=== PATIENT | female | born 1960 | race Caucasian/White ===

== ENCOUNTER 2020-11-13 11:59 | Outpatient (REF) | payer MEDICAID, SELFPAY ==
[2020-11-13 13:56] LABS: MANUAL DIFF FLAG NO
[2020-11-13 14:07] LABS: Basophils Percent Auto 0.7 % (0-2); Eosinophils Absolute Auto 0.1 X10*3/uL (0.0-0.4); Eosinophils Percent Auto 1.8 % (0-4); Hematocrit 37.8 % (37-47); Hemoglobin 12.3 g/dl (12.0-16.0); Imm Gran Abs Auto 0.02 X10*3/uL (0.00-0.03); Imm Gran Pct Auto 0.4 % (0.0-0.4); Lymphocytes Absolute Auto 2.2 X10*3/uL (1.2-4.9); Lymphocytes Percent Auto 37.8 % (20-40); Mean Corpuscular HGB Conc 32.5 g/dl (31.0-35.0); Mean Corpuscular Hemoglobin 30.1 pg (27.0-33.0); Mean Corpuscular Volume 92.4 fL (80-98); Mean Platelet Volume 11.3 fL (9.4-12.3); Monocytes Absolute Auto 0.7 X10*3/uL (0.1-1.2); Neutrophils Absolute Auto 2.6 X10*3/uL (2.0-8.3); Neutrophils Percent Auto 46.3 % (45-73); Platelet Count 207 X10*3/uL (160-400); Red Blood Count 4.09 X10*6/uL (4.20-5.50); Red Cell Distribution Width 12.8 % (11.0-16.0); White Blood Count 5.7 X10*3/uL (4.8-10.8)
[2020-11-13 14:50] LABS: Alanine Aminotransferase 80 U/L (0-31); Albumin Level 4.3 g/dL (3.5-5.0); Alkaline Phosphatase 122 U/L (39-117); Anion Gap 16 (12-20); Aspartate Amino Transferase 57 U/L (5-31); Bilirubin Total 0.4 mg/dL (0.0-1.0); Blood Urea Nitrogen 13 mg/dL (9-16); Calcium 10.1 mg/dL (8.4-10.2); Carbon Dioxide 28 mmol/L (22-29); Chloride 99 mmol/L (96-108); Estimated Glomerular Filt Rate > 60; Glucose Random 84 mg/dL (60-115); Potassium 4.7 mmol/L (3.3-5.1); Sodium 138 mmol/L (135-145); Total Protein 7.3 g/dL (6.5-8.0)
[2020-11-13 15:16] LABS: Valproate 67.7 mcg/mL (50.0-100.0)
[2020-11-16 13:21] LABS: TS Negative Control Passed; TS Panel A 5; TS Panel B 6; TS Positive Control Passed; TSpotTB BORDERLINE (SeeBelow)
== END 2020-11-13 12:00 | disposition home or self-care (01) ==
LOC: HO.10HDL 11:59
PROVIDERS: Visit Provider Internal Medicine
DX: E87.1 Hypo-osmolality and hyponatremia (principal); G40.909 Epilepsy, unspecified, not intractable, without status epilepticus; R60.9 Edema, unspecified; Z87.820 Personal history of traumatic brain injury
CPT/HCPCS: 36415; 80053; 80164; 85025; 86481

== ENCOUNTER 2021-01-01 14:34 | Outpatient (REF) | payer MEDICAID, SELFPAY ==
--- NOTE | ~2021-01-01 | MM_ITS ---
EXAMINATION: MM SCREENING DIGITAL BREAST TOMOSYNTHESIS, BILATERAL CLINICAL INFORMATION: Screening. Asymptomatic. The lifetime risk of breast cancer based on the Tyrer-Cuzick Model is 7%. COMPARISON: Mammography: 09/27/2019, 08/12/2018, 06/24/2017, 06/17/2016 TECHNIQUE: Digital breast tomosynthesis is performed in both the craniocaudal and mediolateral oblique views along with computer-aided detection (CAD). Synthesized 2D images are generated from the tomosynthesis. Technologist notes technically challenging exam, tailored to patient capabilities. FINDINGS: There are scattered areas of fibroglandular density (ACR BI-RADS breast composition Category b). Parenchymal pattern is similar to prior studies. There are scattered parenchymal asymmetries again seen with some year to year variation from shifting fibroglandular tissue with positioning. There is stable nodularity central and outer left breast. The skin contours are smooth. MM/MM tomosynthesis screening BI IMPRESSION: No significant changes from prior studies. ASSESSMENT: BI-RADS 2: Benign RECOMMENDATION: Routine annual mammography screening. This patient's information was entered into a reminder system with a target due date for their next mammogram.
== END 2021-01-01 14:35 | disposition home or self-care (01) ==
LOC: HO.MAMMO 14:34
PROVIDERS: PCP Internal Medicine; Visit Provider Internal Medicine
DX: Z12.31 Encounter for screening mammogram for malignant neoplasm of breast (principal)
CPT/HCPCS: 77063; 77067

== ENCOUNTER 2021-04-11 15:52 | Outpatient (REF) | payer MEDICAID, SELFPAY ==
[2021-04-11 18:12] LABS: Glucose Urine UA NEG (NEG); Leukocyte Esterase Urine NEG (NEG); Nitrite Urine NEG (NEG); Specific Gravity - Urine <= 1.005 (1.005-1.025); Urine Blood NEG (NEG); Urine Ketones NEG (NEG); Urine Protein NEG (NEG-TRACE)
[2021-04-11 18:15] LABS: Appearance Urine CLEAR; Color Urine COLORLESS
== END 2021-04-11 15:53 | disposition home or self-care (01) ==
LOC: HO.LAB 15:52
PROVIDERS: PCP Internal Medicine; Visit Provider Internal Medicine
DX: R30.0 Dysuria (principal)
CPT/HCPCS: 81003; 87086

== ENCOUNTER 2021-11-05 15:59 | Outpatient (REF) | payer MEDICAID, SELFPAY ==
--- NOTE | ~2021-11-05 | XR_ITS ---
EXAMINATION: XR KNEE, RIGHT CLINICAL INFORMATION: Right knee pain. COMPARISON: None TECHNIQUE: Four views of the right knee. FINDINGS: There is mild reduction in tricompartment joint space without bony erosive changes or loose bodies. There is mild superior patellar enthesophytes. No abnormal joint effusion or loose body seen. XR/XR knee RT 4V IMPRESSION: Mild superior patellar spurring. No visible acute fracture, dislocation or subluxation seen. Mild degenerative changes without joint effusion.
== END 2021-11-05 16:00 | disposition home or self-care (01) ==
LOC: HO.XRAY 15:59
PROVIDERS: PCP Internal Medicine; Visit Provider Internal Medicine
DX: M25.561 Pain in right knee (principal)
CPT/HCPCS: 73564

== ENCOUNTER 2022-01-02 15:50 | Outpatient (REF) | payer MEDICAID, SELFPAY ==
--- NOTE | ~2022-01-02 | MM_ITS ---
EXAMINATION: MM SCREENING DIGITAL BREAST TOMOSYNTHESIS, BILATERAL CLINICAL INFORMATION: Screening. Asymptomatic. The lifetime risk of breast cancer based on the Tyrer-Cuzick Model is 7.3%. COMPARISON: Mammography: January 01, 2021 and studies dating back to December 16, 2011 TECHNIQUE: Digital breast tomosynthesis is performed in both the craniocaudal and mediolateral oblique views along with computer-aided detection (CAD). Synthesized 2D images are generated from the tomosynthesis. FINDINGS: There are scattered areas of fibroglandular density (ACR BI-RADS breast composition Category b). There are no significant masses, abnormal calcifications, or other abnormalities. MM/MM tomosynthesis screening BI IMPRESSION: There are no significant changes from prior study. ASSESSMENT: BI-RADS 1: Negative RECOMMENDATION: Routine annual mammography screening. This patient's information was entered into a reminder system with a target due date for their next mammogram.
== END 2022-01-02 15:51 | disposition home or self-care (01) ==
LOC: HO.MAMMO 15:50
PROVIDERS: Visit Provider Internal Medicine
DX: Z12.31 Encounter for screening mammogram for malignant neoplasm of breast (principal)
CPT/HCPCS: 77063; 77067

== ENCOUNTER 2022-11-24 14:03 | Outpatient (REF) | payer MEDICAID, SELFPAY ==
[2022-11-24 14:18] LABS: MANUAL DIFF FLAG NO
[2022-11-24 14:49] LABS: Basophils Absolute Auto 0.1 X10*3/uL (0.0-0.2); Basophils Percent Auto 0.8 % (0-2); Eosinophils Absolute Auto 0.1 X10*3/uL (0.0-0.4); Eosinophils Percent Auto 1.7 % (0-4); Hematocrit 33.8 % (37.0-47.0); Hemoglobin 11.2 g/dl (12.0-16.0); Imm Gran Abs Auto 0.01 X10*3/uL (0.00-0.03); Imm Gran Pct Auto 0.2 % (0.0-0.4); Lymphocytes Absolute Auto 2.3 X10*3/uL (1.2-4.9); Lymphocytes Percent Auto 38.4 % (20-40); Mean Corpuscular HGB Conc 33.1 g/dl (31.0-35.0); Mean Corpuscular Hemoglobin 29.6 pg (27.0-33.0); Mean Corpuscular Volume 89.4 fL (80.0-98.0); Monocytes Absolute Auto 0.8 X10*3/uL (0.1-1.2); Monocytes Percent Auto 13.2 % (2-11); Neutrophils Absolute Auto 2.7 x10*3/uL (2.0-8.3); Neutrophils Percent Auto 45.7 % (45-73); Platelet Count 217 X10*3/uL (160-400); Red Blood Count 3.78 X10*6/uL (4.20-5.50); Red Cell Distribution Width 12.2 % (11.0-16.0)
[2022-11-24 15:46] LABS: Alanine Aminotransferase 19 U/L (0-31); Albumin Level 3.9 g/dL (3.5-5.0); Alkaline Phosphatase 74 U/L (39-117); Anion Gap 14 (12-20); Aspartate Amino Transferase 25 U/L (5-31); Bilirubin Total 0.3 mg/dL (0.0-1.0); Blood Urea Nitrogen 14 mg/dL (9-16); Calcium 9.4 mg/dL (8.4-10.2); Carbon Dioxide 24 mmol/L (22-29); Chloride 102 mmol/L (96-108); Estimated Glomerular Filt Rate > 60; Glucose Random 106 mg/dL (60-115); Potassium 4.9 mmol/L (3.3-5.1); Sodium 135 mmol/L (135-145); Total Protein 6.8 g/dL (6.5-8.0)
[2022-11-27 00:48] LABS: TS Negative Control Passed; TS Panel A 0; TS Panel B 0; TS Positive Control Passed; TSpotTB Negative (Negative)
== END 2022-11-24 14:04 | disposition home or self-care (01) ==
LOC: HO.LAB 14:03
PROVIDERS: PCP Internal Medicine; Visit Provider Internal Medicine
DX: G40.909 Epilepsy, unspecified, not intractable, without status epilepticus (principal); Z87.820 Personal history of traumatic brain injury
CPT/HCPCS: 36415; 80053; 85025; 86481

== ENCOUNTER 2023-03-09 13:50 | Outpatient (REF) | payer MEDICAID, SELFPAY ==
[2023-03-09 15:31] LABS: Appearance Urine Clear; Color Urine Dark Yellow; Glucose Urine UA Negative (Negative); Leukocyte Esterase Urine Moderate (2+) (Negative); Nitrite Urine Negative (Negative); PH 6.5 (5.0-9.0); UMIC TRIGGER UA YES; Urine Blood Negative (Negative); Urine Ketones Trace mg/dL (Negative); Urine Protein Negative (Neg-Trace)
[2023-03-09 15:34] LABS: Bacteria Urine None Seen (None Seen); Hyaline Casts Urine 0-2 /LPF (0-2); RBC Urine 0-2 /HPF (0-2); Squamous Epithelial Cell Urine 0-2 /HPF (0-2); WBC Urine 21-50 /HPF (0-5)
== END 2023-03-09 13:51 | disposition home or self-care (01) ==
LOC: HO.LAB 13:50
PROVIDERS: PCP Internal Medicine; Visit Provider Internal Medicine
DX: R30.0 Dysuria (principal)
CPT/HCPCS: 81001; 87086

== ENCOUNTER 2023-09-21 11:53 | Outpatient (REF) | payer MEDICAID, SELFPAY ==
--- NOTE | ~2023-09-21 | XR_ITS ---
EXAMINATION: XR SHOULDER, RIGHT CLINICAL INFORMATION: Right shoulder pain. COMPARISON: None available. TECHNIQUE: 3 views of the right shoulder. FINDINGS: The bones are diffusely demineralized. Advanced degenerative changes in the partially imaged upper thoracic spine with leftward curvature. Very limited images of the right mid to upper lung demonstrate possible diffuse lung parenchymal disease which should be evaluated with dedicated views of the chest. Deformity with hypertrophic change at the opa-kj-yszrjc aspect of the right clavicle characteristic of prior clavicular fracture with relative inferior displacement of the lateral fracture fragment. Correlation with clinical history and exam recommended to determine further management and chronicity of these findings. XR/XR shoulder RT min 2V IMPRESSION: 1. Prior right fracture dislocation of the right mid clavicle with evidence suggesting some callus formation/healing. Correlation with clinical history and exam recommended to determine further management and chronicity of these findings. 2. Very limited images of the right hkj-wz-ozsdh lung demonstrate possible diffuse lung parenchymal disease which should be evaluated with dedicated PA and lateral views of the chest. This study was presented today September 22, 2023 at 12:15 PM for interpretation. PSA staff will provide results to referring provider at this time.
== END 2023-09-21 11:54 | disposition home or self-care (01) ==
LOC: HO.XRAY 11:53
PROVIDERS: PCP Internal Medicine; Visit Provider Internal Medicine
DX: M25.511 Pain in right shoulder (principal); Z91.81 History of falling
CPT/HCPCS: 73030

== ENCOUNTER 2023-10-05 09:42 | Outpatient (REF) | payer MEDICAID, SELFPAY ==
--- NOTE | ~2023-10-05 | XR_ITS ---
EXAMINATION: XR CLAVICLE, RIGHT CLINICAL INFORMATION: Fracture of unspecified part of unspecified clavicle COMPARISON: Right shoulder 09/21/2023 TECHNIQUE: PA and tangential views of the right clavicle. FINDINGS: There is no significant change in position or alignment of the fracture of the mid to distal right clavicle with relative inferior displacement of the lateral fracture fragment. There is suggestion of some callus formation consistent with healing. The acromioclavicular joint appears normal. XR/XR clavicle RT IMPRESSION: Healing or healed fracture of the mid to distal right clavicle.
== END 2023-10-05 09:43 | disposition home or self-care (01) ==
LOC: HO.HOSX 09:42
PROVIDERS: Visit Provider Physician Assistant
DX: S42.021A Displaced fracture of shaft of right clavicle, initial encounter for closed fracture (principal)
CPT/HCPCS: 73000; 99212

== ENCOUNTER 2023-10-05 12:53 | Outpatient (AMB) | payer MEDICAID, SELFPAY ==
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
== END 2023-10-05 13:38 | disposition home or self-care (01) ==
PROVIDERS: PCP Internal Medicine; Visit Provider Physician Assistant
DX: S42.021A Displaced fracture of shaft of right clavicle, initial encounter for closed fracture (principal)
CPT/HCPCS: 99203

== ENCOUNTER 2023-12-21 12:08 | Outpatient (REF) | payer MEDICAID, SELFPAY ==
[2023-12-21 13:21] LABS: MANUAL DIFF FLAG NO
[2023-12-21 13:27] LABS: Basophils Percent Auto 0.7 % (0-2); Eosinophils Absolute Auto 0.1 X10*3/uL (0.0-0.4); Eosinophils Percent Auto 2.1 % (0-4); Hematocrit 33.9 % (37.0-47.0); Hemoglobin 11.3 g/dl (12.0-16.0); Imm Gran Abs Auto 0.01 X10*3/uL (0.00-0.03); Imm Gran Pct Auto 0.2 % (0.0-0.4); Lymphocytes Absolute Auto 2.3 X10*3/uL (1.2-4.9); Lymphocytes Percent Auto 40.3 % (20-40); Mean Corpuscular HGB Conc 33.3 g/dl (31.0-35.0); Mean Corpuscular Hemoglobin 30.4 pg (27.0-33.0); Mean Corpuscular Volume 91.1 fL (80.0-98.0); Mean Platelet Volume 10.3 fL (9.4-12.3); Monocytes Absolute Auto 0.7 X10*3/uL (0.1-1.2); Monocytes Percent Auto 12.7 % (2-11); Neutrophils Absolute Auto 2.5 x10*3/uL (2.0-8.3); Platelet Count 203 X10*3/uL (160-400); Red Blood Count 3.72 X10*6/uL (4.20-5.50); Red Cell Distribution Width 12.6 % (11.0-16.0); White Blood Count 5.7 X10*3/uL (4.8-10.8)
[2023-12-21 14:05] LABS: Valproate 65.6 mcg/mL (50.0-100.0)
[2023-12-21 14:07] LABS: Alanine Aminotransferase 19 U/L (0-31); Albumin Level 3.9 g/dL (3.5-5.0); Anion Gap 12 (12-20); Aspartate Amino Transferase 24 U/L (5-31); Bilirubin Total 0.2 mg/dL (0.0-1.0); Blood Urea Nitrogen 13 mg/dL (9-16); Calcium 9.3 mg/dL (8.4-10.2); Carbon Dioxide 27 mmol/L (22-29); Chloride 99 mmol/L (96-108); Estimated Glomerular Filt Rate > 60; Glucose Random 78 mg/dL (60-115); Potassium 4.6 mmol/L (3.3-5.1); Sodium 133 mmol/L (135-145); Total Protein 7.2 g/dL (6.5-8.0); Vitamin D 25-OH Total 57.7 ng/mL (>30)
[2023-12-21 14:17] LABS: Alkaline Phosphatase 73 U/L (39-117)
== END 2023-12-21 12:09 | disposition home or self-care (01) ==
LOC: HO.10HDL 12:08
PROVIDERS: Visit Provider Internal Medicine
DX: E78.00 Pure hypercholesterolemia, unspecified (principal); G40.909 Epilepsy, unspecified, not intractable, without status epilepticus; Z79.899 Other long term (current) drug therapy
CPT/HCPCS: 36415; 80053; 80164; 82306; 85025

== ENCOUNTER 2024-01-04 14:58 | Outpatient (AMB) | payer MEDICAID, SELFPAY ==
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
[2024-01-04 15:08] VITALS: BP 137/60; PULSE 72; BMI 32.7
== END 2024-01-04 16:04 | disposition home or self-care (01) ==
PROVIDERS: PCP Internal Medicine; Visit Provider Nurse Practitioner Family
DX: Z12.11 Encounter for screening for malignant neoplasm of colon (principal); Z01.818 Encounter for other preprocedural examination
CPT/HCPCS: 99203

== ENCOUNTER → 2024-01-04 14:58 | Outpatient (BNVA) | payer MEDICAID, SELFPAY | PROVIDERS: PCP Internal Medicine; Visit Provider Nurse Practitioner Family | DX: Z12.11 Encounter for screening for malignant neoplasm of colon (principal) | CPT/HCPCS: 99212 ==

== ENCOUNTER 2024-03-07 12:24 | Outpatient (REF) | payer MEDICAID, SELFPAY ==
--- NOTE | ~2024-03-07 | XR_ITS ---
EXAMINATION: XR FOOT, RIGHT CLINICAL INFORMATION: Right foot pain. COMPARISON: None available. TECHNIQUE: AP, lateral, and both oblique views of the right foot. FINDINGS: Bones are osteopenic. Mild multifocal osteoarthritis is present in the MTP joints and tarsometatarsal joints with joint space narrowing and marginal osteophytes. Rumj-qs-iooxcjpq multifocal osteoarthritis is present in the interphalangeal joints. Ankylosis is suspected at the PIP joints of the third and fourth toes. The distal phalanx of the fourth toe appears absent. There is ankylosis at the DIP joint of the second toe. There is moderate osteoarthritis at the talocrural joint with osseous fragments, potentially the result of an old injury. There is ossification in the region of the mid substance of the Achilles tendon, potentially due to an old avulsion injury or ossification in the region of partial tearing/tendinosis. XR/XR foot RT min 3V IMPRESSION: 1. 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 2. 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 3. Ossification in the region of the mid substance of the Achilles tendon, potentially due to an old avulsion injury or ossification in the region of partial tearing/tendinosis.
== END 2024-03-07 12:25 | disposition home or self-care (01) ==
LOC: HO.XRAY 12:24
PROVIDERS: PCP Internal Medicine; Visit Provider Internal Medicine
DX: M79.671 Pain in right foot (principal)
CPT/HCPCS: 73630

== ENCOUNTER 2024-03-16 15:56 | Outpatient (REF) | payer MEDICAID, SELFPAY | END 2024-03-16 15:57 | disposition home or self-care (01) | LOC: HO.LNP 15:56 | PROVIDERS: Visit Provider Internal Medicine | DX: L03.031 Cellulitis of right toe (principal) | CPT/HCPCS: 87070; 87077; 87186; 87205 ==

== ENCOUNTER 2024-06-27 09:31 | Day surgery (SDC) | payer MEDICAID, SELFPAY ==
[2024-06-23 13:46] VITALS: BMI 32.7
--- NOTE | 2024-06-27 08:59 | HO.ANESPROP2 ---
[facility] Active Problems Active Problems: All Active Problems Right clavicle fracture (Acute) Past Medical History Medical History (Updated 06/23/24 @ 13:52 by Becki Alfred RN) Elevated cholesterol PTSD (post-traumatic stress disorder) Spastic hemiplegia affecting right dominant side Seizures TBI (traumatic brain injury) Family History Family history of problems with anesthesia: No Surgical History Surgical History (Updated 06/23/24 @ 13:42 by Becki Alfred RN) History of carpal tunnel release H/O colonoscopy History of Problems with Anesthesia: No Social History Social History Patient Tobacco Use Status: Never used Tobacco Use of substances other than those prescribed or required for medical reasons: No Have you been hit, kicked, punched, or otherwise hurt by someone within the past year? If so, by whom?: No Are you DNR?: No Advance Directives: No Advance Directives Information Provided: Yes Recently lost weight without trying: No Current occupation: right hand dominant Meds Allergies Allergy/AdvReac Type Severity Reaction Status Date / Time Penicillins [PENICILLINS] Allergy Intermediate RASH Verified 01/04/24 15:11 Home Medications ?Medication ?Instructions ?Recorded ?Confirmed ?Last Taken ?Type bupropion HCl 150 mg 24 hr tablet, 150 mg PO QAM 10/05/23 06/23/24 Unknown History extended release calcium carbonate 600 mg-vitamin 1 tab PO DAILY 10/05/23 06/23/24 Unknown History D3 10 mcg (400 unit) tablet divalproex 250 mg tablet,extended 250 mg PO BEDTIME 10/05/23 06/23/24 Unknown History release 24 hr divalproex 500 mg tablet,extended 500 mg PO BEDTIME 10/05/23 06/23/24 Unknown History release 24 hr fluoxetine 40 mg capsule 40 mg PO DAILY 10/05/23 06/23/24 Unknown History quetiapine 50 mg tablet 50 mg PO BID 10/05/23 06/23/24 Unknown History ibuprofen 200 mg tablet 400 mg PO Q8H 01/04/24 06/23/24 Unknown History bhmzciyqlwux-Hb-mcpb-minerals 1 tab PO DAILY 01/04/24 06/23/24 Unknown History Exam Height,Weight and Vital Signs: Height 5 ft 1 in Weight 78.471 kg Airway Mallampati Class: II (upper) TM Dist: >3cm Neck ROM: Full Heart: rrr Lungs: cta Assessment and Plan Assessment Anesthesia Assessment: Anesthesia Plan Discussed and Chart Reviewed Final Anesthetic Review Family History of Problems with Anesthesia: No History of Problems with Anesthesia: No NPO: Yes ASA Class: III Final Preanesthetic Review: No Changes in Pt Med Stat, Meds/Allgs Chart Reviewed and Consent Obtained/Reviewed Patient Risk: Low Procedure Risk: Low Anesthetic Plan Anesthetic Plan: MAC: Disposition: Standard PACU
[2024-06-27 10:05] VITALS: BP 135/59; PULSE 85; RESP 16; TEMP 36.7; O2SAT 96; BMI 30.7
--- NOTE | 2024-06-27 10:16 | PC.NURSE ---
patient is not AOx3 AUTOMOTIVE ARTIST at bedside whom patient lives with 16/03. there is no HCP form or NOK. father estee to be called his wifes number is [phone]
--- NOTE | 2024-06-27 10:22 | PC.NURSE ---
unable to contact pt father at this time. phone is not connected.
--- NOTE | 2024-06-27 10:24 | MHC.SHP ---
Pre-Procedural Eval Section A - 24 Hr Update-Section A only Date of Service: 06/27/24 The patient is an INPATIENT: No The patient has been examined within 24 hours of the surgical procedure. The History & Physical has been completed within 30 days and I have reviewed it.: No Section B - Complete if H&P > 30 days Chief Complaint: Colon cancer screening Relevant Family History (Specify if Yes): No Relevant Social History: None Present Medications: see Short Stay Collaborative assessment Medical History: Significant History (TBI (traumatic brain injury)) History of Previous Operations: Relevant previous surgery/procedure and date(s) (History of colonoscopy) Allergies: Allergies Allergy/AdvReac Type Severity Reaction Status Date / Time Penicillins [PENICILLINS] Allergy Intermediate RASH Verified 01/04/24 15:11 Review of Systems Sugical H&P ROS: Negative: Cardiovascular, Respiratory and Gastrointestinal and Yes, Specify: Constitution (TBI) Exam Surgical H&P Exam: Normal: Heart, Normal: Lungs, Normal: Extremities and Normal: Abdomen Plan Diagnosis/Plan: Unchanged I have reviewed the history and physical and performed a pertinent physical examination on my patient. No changes have occurred unless specified. Time Spent With Patient Time: Total time managing care of this patient today ____ minutes.
--- NOTE | 2024-06-27 10:45 | PC.NURSE ---
non emergency services ambulance driver attempted to call father of pt and no answer
[2024-06-27] MEDS: Lactated Ringers 1,000 ML 80 ML IVCONT (11:28)
--- NOTE | 2024-06-27 11:30 | PC.NURSE ---
verbal consent with father estee signed with anesthesia and md for procedure.
--- NOTE | 2024-06-27 11:44 | HO.OPN-COLON ---
Colonoscopy Operative Note Operative Note Date of Service: 06/27/24 Narrative: FLEXIBLE SIGMOIDOSCOPY TILL 25 CMS Pre-op diagnosis: Surveillance for colon polyps. Post-op diagnosis:? Procedure was aborted due to poor prep Endoscopist:? Uyen Marquez MD Anesthesia:?MAC Consent: Indications for the procedure and potential complications of bleeding, perforation, reaction to medications and missed diagnosis were discussed with the patient's dad, Mike Sanders and informed verbal consent was obtained. Instrument: Olympus CF H 190 L variable stiffness adult colonoscope Monitoring: Vital signs and clinical assessment, intermittent blood pressure monitoring, continuous EKG monitoring, Pulse oximetry and Carbon Dioxide monitoring were done throughout the procedure. Please see anesthesia flowsheet. Procedure: The patient was placed in the left lateral decubitis position and pre-procedure medications were administered. After a digital rectal examination of the ano-rectum, the video colonoscope was inserted into the rectum and advanced through the colon to the sigmoid colon at 25 cms. The colonoscope could not be advanced further due to solid and semicold stool blocking the lumen. The colonoscope was removed and the procedure was aborted Findings: Sigmoid Colon: Not evaluated due to poor prep Rectum: Not evaluated due to poor prep Ano-rectum: Rectal exam was normal Colon preparation: Poor - procedure was aborted. [place] Bowel Preparation Scale Left colon; 0 (0 = Unprepared colon segment with mucosa not seen due to solid stool that cannot be cleared. 1 = Portion of mucosa of the colon segment seen, but other areas of the colon segment not well seen due to staining, residual stool and/or opaque liquid. 2 = Minor amount of residual staining, small fragments of stool and/or opaque liquid, but mucosa of colon segment seen well. 3 = Entire mucosa of colon segment seen well with no residual staining, small fragments of stool or opaque liquid) Impression and Post Procedure Diagnosis: Sigmoidoscopy Findings: Procedure was aborted due to poor prep Plan: Colonoscopy appointment will be rescheduled with 2 day prep Above findings were reviewed with the patient and her SWING TYPE LATHE OPERATOR.
[2024-06-27 11:51] VITALS: BP 144/73; PULSE 87; RESP 12; TEMP 36.6; O2SAT 98
[2024-06-27 12:06] VITALS: BP 141/69; PULSE 84; RESP 16; TEMP 36.6; O2SAT 98
== END 2024-06-27 12:42 | disposition home or self-care (01) ==
PROVIDERS: PCP Internal Medicine; Visit Provider Internal Medicine Gastroenterology
PROC: 0DJD8ZZ Inspection of Lower Intestinal Tract, Via Natural or Artificial Opening Endoscopic (ICD-10-PCS; CPT 45378; principal; 2024-06-27 11:20)
DX: Z12.11 Encounter for screening for malignant neoplasm of colon (principal); Z53.8 Procedure and treatment not carried out for other reasons; E78.5 Hyperlipidemia, unspecified; R56.9 Unspecified convulsions; Z87.820 Personal history of traumatic brain injury; Z79.899 Other long term (current) drug therapy
CPT/HCPCS: 45330; J2003; J2704

== ENCOUNTER → 2024-06-27 09:31 | Outpatient (BNV) | payer MEDICAID, SELFPAY | PROVIDERS: PCP Internal Medicine; Visit Provider Internal Medicine Gastroenterology | DX: Z12.11 Encounter for screening for malignant neoplasm of colon (principal); Z86.0100 Personal history of colon polyps, unspecified; Z91.199 Patient's noncompliance with other medical treatment and regimen due to unspecified reason | CPT/HCPCS: 45378 ==

== ENCOUNTER 2024-09-20 09:01 | Outpatient (REF) | payer MEDICAID, SELFPAY ==
--- OUTSIDE RECORDS SUMMARY | 2024-09-20 09:25 | XMS_ITS | Clinical Summary ---
Author Organization [facility] Address [address] [place] [address] Care Team Providers Care Metal Molder Name Role Phone Unavailable Primary Care Provider Unavailabl e Source Comments PLEASE NOTE, if this patient is a minor, it may be UNLAWFUL to discuss sensitive information that is contained in these records (such as FAMILY PLANNING, MENTAL HEALTH or SUBSTANCE ABUSE) with the minor patient's parent or other person without the patient's specific authorization.[facility] Immunizations Name Administration Dates Next Due Moderna COVID-19 Vaccine, re d cap blue label, 12+ Primary Series 01/08/2021,12/11/2020 Social History Tobacco Use Types Packs/Day Years Used Date Smoking Tobacco: Never Assessed Social Connections Answer Date Recorded Social Connections and Isolation 0 01/22/2024 Financial Resource Strain Answer Date R ecorded Financial Resource Strain 0 2023 Stress Answer Date Recorded Stress 0 01/22/2024 Physical Activity Answer Date Recorded Physical Activity 0 01/22/2024 Food Insecurity Answer Date Recorded Food 0 01/22/2024 Transportation Needs Answer Date Record ed Transportation 0 01/22/2024 Housing Stability Answer Date Recorded Housing 0 01/22/2024 Safety and Environment Answer Date Ananth rded Safety 0 01/22/2024 Utilities Answer Date Recorded Utilities 0 01/22/2024 Employment Answer Date Recorded Employment 0 01/22/2024 Comments Unknown Sex and Gender Information Value Date Recorded Sex Assigned at Not on file Legal Sex Female 6:16 AM PDT Gender Identity Not on file Sexual Orientation Not on file Plan of Treatment Health Maintenance Due Date Last Done Comments Diabetes Screening 1960 HPV Screening 1960 Hepatitis C Screening 1960 Lipid Screening 1960 Pap + HPV 1960 Tobacco Screening 1960 HIV Screening 11/30/1975 Annual Preventive Care Visit 1978 Hypertension Screening (#1) 1978 Imm-DTaP/Tdap/Td (1 - Tdap) 11/30/1979 Cervical Cancer Screening 1981 Pap Smear 1981 Breast Cancer Screening (Mammogram) 2000 CT Colonography 2005 Colonoscopy 2005 Colorectal Cancer Screening 2005 FIT/gFOBT 2005 Fecal DNA 2005 Flexible Sigmoidoscopy 2005 Imm-Zoster, Recombinant (1 of 2) 2010 Alcohol and Drug Screen 08/24/2023 Depression Annual Screen 08/24/2023 [id number] ( season) 2024 021, 12/11/2020 Imm-Influenza (#1) 2024 Cervical Ablation/Cold-Knife Conization Discontinued Cervical Cryotherapy Discontinued Colposcopy Discontinued Endometrial Biopsy Discontinued Excision/Leep Discontinued HPV Genotyping Discontinued Vaginal Pap Discontinued Vulvoscopy Discontinued Insurance [place] MEDICAID
--- OUTSIDE RECORDS SUMMARY | 2024-09-20 09:26 | XMS_ITS | Clinical Summary ---
Author Organization [facility] Address [address] [place] [address] Care Team Providers Care Senior Financial Analyst Name Role Phone Unavailable Primary Care Provider Unavailabl e Social History Tobacco Use Types Packs/Day Years Used Date Smoking Tobacco: Never Assessed Sex and Gender Information Value Date Recorded Sex Assigned at Not on file Gender Identity Not on file Sexual Orientation Not on file Plan of Treatment Health Maintenance Due Date Last Done Comments Breast Cancer Screening 1960 DTaP,Tdap,and Td Vaccines (1 - Tdap) 11/30/1979 Cervical Cancer Screening: P ap Smear 1981 Zoster Vaccines (1 of 2) 2010 Colorectal Cancer Screening: Colonoscopy 07/26/2022 Depression Screening 07/26/2022 HIV Screening 07/26/2022 Hepatitis C Screening 07/26/2022 Social Influencers of Health Screening 07/26/2022 COVID-19 Vaccine ( - 2023-2 5 season) 2024 Influenza Vaccine (#1) 2024 RSV Immunization Patients 60 + Years Old (1 - 1-dose 75+ series) 11/30/2035 HIB Vaccines Aged Out No longer eligi ble based on patient's age to complete this topic HPV Vaccines Aged Out No longer eligi ble based on patient's age to complete this topic Hepatitis A Vaccines Aged Out No long er eligible based on patient's age to complete this topic Hepatitis B Vaccines Aged Out No long er eligible based on patient's age to complete this topic IPV Vaccines Aged Out No longer eligi ble based on patient's age to complete this topic MMR Vaccines Aged Out No longer eligi ble based on patient's age to complete this topic Meningococcal ACWY Vaccine Aged Out N o longer eligible based on patient's age to complete this topic Pneumococcal Vaccine: Pediat rics (0 to 5 Years) and At-Risk Patients (6 to 64 Years) Aged Out No longer eligible b ased on patient's age to complete this topic RSV Immunization Patients Un amada 20 months Aged Out No longer eligible b ased on patient's age to complete this topic Varicella Vaccines Aged Out No longer eligible based on patient's age to complete this topic Advance Directives Documents on File Type Date Recorded 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
== END 2024-09-20 09:02 | disposition home or self-care (01) ==
LOC: HO.SH 09:01
PROVIDERS: Visit Provider Internal Medicine
DX: Z01.118 Encounter for examination of ears and hearing with other abnormal findings (principal); H90.3 Sensorineural hearing loss, bilateral
CPT/HCPCS: 92557; 92567

== ENCOUNTER 2025-02-02 11:33 | Outpatient (AMB) | payer OTHER, SELFPAY ==
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
[2025-02-02 11:28] VITALS: BP 130/70; PULSE 72; TEMP 36.5; O2SAT 96; BMI 32.4
--- OUTSIDE RECORDS SUMMARY | 2025-02-02 13:44 | XMS_ITS | Clinical Summary ---
Author Organization [facility] Address [address] [place] [address] Care Team Providers Care Battery Engineer Name Role Phone Unavailable Primary Care Provider Unavailabl e Source Comments PLEASE NOTE, if this patient is a minor, it may be UNLAWFUL to discuss sensitive information that is contained in these records (such as FAMILY PLANNING, MENTAL HEALTH or SUBSTANCE ABUSE) with the minor patient's parent or other person without the patient's specific authorization.[facility] Immunizations Immunization Administration Dates Next Due Moderna COVID-19 Vaccine, [...] Health Maintenance Due Date Last Done Comments Anxiety Screening 1960 Diabetes Screening 1960 HPV Screening 1960 Hepatitis C Screening 1960 Lipid Screening 1960 Pap + HPV 1960 Tobacco Screening 1960 HIV Screening 11/30/1975 Hypertension Screening (#1) 1978 Imm-DTaP/Tdap/Td (1 - Tdap) 11/30/1979 Cervical Cancer Screening 1981 Pap Smear 1981 Breast Cancer Screening (Mammogram) 2000 CT Colonography 2005 Colonoscopy 2005 Colorectal Cancer Screening 2005 FIT/gFOBT 2005 Fecal DNA 2005 Flexible Sigmoidoscopy 2005 Imm-Zoster, Recombinant (1 of 2) 2010 [id number] ( season) 2024 021, 12/11/2020 Imm-Influenza (#1) 2024 Alcohol and Drug Screen 08/24/2024 Depression Annual Screen 08/24/2024 Cervical Ablation/Cold-Knife Conization Discontinued Cervical Cryotherapy Discontinued Colposcopy Discontinued Endometrial Biopsy Discontinued Excision/Leep Discontinued HPV Genotyping Discontinued Vaginal Pap Discontinued Vulvoscopy Discontinued Insurance [place]ID
== END 2025-02-02 12:01 | disposition home or self-care (01) ==
PROVIDERS: PCP Internal Medicine; Visit Provider Internal Medicine
DX: Z00.00 Encounter for general adult medical examination without abnormal findings (principal); G81.11 Spastic hemiplegia affecting right dominant side; S06.9X9A Unspecified intracranial injury with loss of consciousness of unspecified duration, initial encounter; E78.00 Pure hypercholesterolemia, unspecified; D64.9 Anemia, unspecified

== ENCOUNTER 2025-02-02 12:06 | Outpatient (REF) | payer OTHER, SELFPAY ==
[2025-02-02 13:29] LABS: MANUAL DIFF FLAG NO
[2025-02-02 13:31] LABS: Basophils Absolute Auto 0.1 X10*3/uL (0.0-0.2); Eosinophils Absolute Auto 0.2 X10*3/uL (0.0-0.4); Eosinophils Percent Auto 2.9 % (0-4); Hematocrit 33.3 % (37.0-47.0); Hemoglobin 11.2 g/dl (12.0-16.0); Imm Gran Abs Auto 0.01 X10*3/uL (0.00-0.03); Imm Gran Pct Auto 0.2 % (0.0-0.4); Lymphocytes Percent Auto 31.2 % (20-40); Mean Corpuscular HGB Conc 33.6 g/dl (31.0-35.0); Mean Corpuscular Hemoglobin 30.1 pg (27.0-33.0); Mean Corpuscular Volume 89.5 fL (80.0-98.0); Mean Platelet Volume 10.4 fL (9.4-12.3); Monocytes Absolute Auto 0.8 X10*3/uL (0.1-1.2); Monocytes Percent Auto 12.9 % (2-11); Neutrophils Absolute Auto 3.3 x10*3/uL (2.0-8.3); Neutrophils Percent Auto 51.8 % (45-73); Platelet Count 227 X10*3/uL (160-400); Red Blood Count 3.72 X10*6/uL (4.20-5.50); Red Cell Distribution Width 12.1 % (11.0-16.0); White Blood Count 6.3 X10*3/uL (4.8-10.8)
[2025-02-02 13:37] LABS: Estimated Average Glucose 108 mg/dL; Hemoglobin A1c % 5.4 % (<6.0)
[2025-02-02 13:55] LABS: Alanine Aminotransferase 25 U/L (0-31); Alkaline Phosphatase 72 U/L (39-117); Anion Gap 9 (12-20); Aspartate Amino Transferase 32 U/L (5-31); Bilirubin Total 0.3 mg/dL (0.0-1.0); Blood Urea Nitrogen 11 mg/dL (9-16); Calcium 9.2 mg/dL (8.4-10.2); Carbon Dioxide 27 mmol/L (22-29); Chloride 96 mmol/L (96-108); Estimated Glomerular Filt Rate > 60; Glucose Random 82 mg/dL (60-115); Potassium 4.6 mmol/L (3.3-5.1); Sodium 127 mmol/L (135-145); Total Protein 7.1 g/dL (6.5-8.0)
[2025-02-03 07:33] LABS: LDL Cholesterol Direct 73 mg/dL (<100)
== END 2025-02-02 12:07 | disposition home or self-care (01) ==
LOC: HO.10HDL 12:06
PROVIDERS: Visit Provider Internal Medicine
DX: Z00.00 Encounter for general adult medical examination without abnormal findings (principal); G81.11 Spastic hemiplegia affecting right dominant side; S06.9X9S Unspecified intracranial injury with loss of consciousness of unspecified duration, sequela; E78.00 Pure hypercholesterolemia, unspecified; D64.9 Anemia, unspecified
CPT/HCPCS: 36415; 80053; 83036; 83721; 85025; 96127; 99386

== ENCOUNTER 2025-03-16 12:24 | Outpatient (REF) | payer OTHER, SELFPAY ==
--- OUTSIDE RECORDS SUMMARY | 2025-03-16 12:49 | XMS_ITS | Clinical Summary ---
Author Organization [facility] Address [address] [place] [address] Care Team Providers Care Manager Harbor Name Role Phone Unavailable Primary Care Provider [...] 2005 Fecal DNA 2005 Flexible Sigmoidoscopy 2005 Imm-Pneumococcal 50+ (1 of 1 - PCV) 2010 Imm-Zoster, Recombinant (1 of 2) 2010 [id number]-72 ( season) 2024 021, 12/11/2020 Alcohol and Drug Screen 08/24/2024 Depression Annual Screen 08/24/2024 Imm-Influenza (#1) 2025 Cervical Ablation/Cold-Knife Conization Discontinued Cervical Cryotherapy Discontinued Colposcopy Discontinued Endometrial Biopsy Discontinued Excision/Leep Discontinued HPV Genotyping Discontinued Vaginal Pap Discontinued Vulvoscopy Discontinued Insurance [place] MEDICAID
--- OUTSIDE RECORDS SUMMARY | 2025-03-16 12:49 | XMS_ITS | Clinical Summary ---
Author Organization [facility] Address [address] [place] [phone] Phone Care Team Providers Care Wood Router Hand Name Role Phone Ferderick Huggins MD Primary Care Provider [phone] Allergies Active Allergy Reactions Criticality Noted Date Comments Penicillin G Rash 10/15/2024 Medications No known medications Active Problems No known active problems Immunizations Name Administration Dates Next Due Tdap Tetanus diptheria acell ular pertussis (Boostrix; Adacel) 7yo and older 10/15/2024 Medical History Medical History Date Comments Seizures (CMS/HCC V24, CMS/[facility] V28) Anxiety Social History Tobacco Use Types Packs/Day Years Used Date Smoking Tobacco: Never Assessed Comments Unknown Sex and Gender Information Value Date Recorded Sex Assigned at Not on file Legal Sex Female 5:33 PM EST Gender Identity Not on file Sexual Orientation Not on file Obstetrics History Last Filed Vital Signs Vital Sign Reading Time Taken Comments Blood Pressure 126/59 10/15/2024 10:19 AM EST Pulse 79 10/15/2024 10:19 AM EST Temperature 36.6 C (97.9 F) 10/15/2024 8:07 AM EST Respiratory Rate 16 10/15/2024 10:19 AM EST Oxygen Saturation 100% 10/15/2024 10:19 AM EST Inhaled Oxygen Concentration - - Weight 78.5 kg (173 lb) 10/15/2024 8:07 AM EST Height 152.4 cm (5') 10/15/2024 8:07 AM EST Body Mass Index 33.79 10/15/2024 8:07 AM EST Plan of Treatment Health Maintenance Due Date Last Done Comments Breast Cancer Screening 1960 Cervical Cancer Screening: P ap Smear 1981 Pneumococcal Vaccine: 50+ Years (1 of 1 - PCV) 2010 Zoster Vaccines (1 of 2) 2010 Colorectal Cancer Screening: Colonoscopy 07/26/2022 HIV Screening 07/26/2022 Hepatitis C Screening 07/26/2022 Social Influencers of Health Screening 07/26/2022 COVID-19 Vaccine (3 - 2023-2 5 season) 2024 01/08/2021, 12/11/2020 Depression Screening 08/24/2024 Influenza Vaccine (#1) 2025 DTaP,Tdap,and Td Vaccines (2 - Td or Tdap) 10/15/2034 10/15/2024 RSV Immunization Adult Patients (1 - 1-dose 75+ series) 11/30/2035 HIB [...] patient's age to complete this topic Meningococcal B Vaccine Aged Out No l onger eligible based on patient's age to complete this topic RSV Immunization Patients Under 20 months Aged Out No longer eligible b ased on patient's age to complete this topic Varicella Vaccines Aged Out No longer eligible based on patient's age to complete this topic Insurance MEDICAID - [place] Advance Directives Documents on File Type Date Recorded 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
[2025-03-16 13:24] LABS: Anion Gap 12 (12-20); Blood Urea Nitrogen 11 mg/dL (9-16); Calcium 9.2 mg/dL (8.4-10.2); Carbon Dioxide 24 mmol/L (22-29); Chloride 98 mmol/L (96-108); Estimated Glomerular Filt Rate > 60; Potassium 4.6 mmol/L (3.3-5.1); Sodium 129 mmol/L (135-145)
== END 2025-03-16 12:25 | disposition home or self-care (01) ==
LOC: HO.LAB 12:24
PROVIDERS: PCP Internal Medicine; Visit Provider Internal Medicine
DX: E87.1 Hypo-osmolality and hyponatremia (principal)
CPT/HCPCS: 36415; 80048

== ENCOUNTER 2025-05-03 12:04 | Outpatient (AMB) | payer OTHER, SELFPAY ==
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
[2025-05-03 12:00] VITALS: BP 120/68; PULSE 80; RESP 18; TEMP 36.9; O2SAT 99; BMI 34.0
--- OUTSIDE RECORDS SUMMARY | 2025-05-03 15:16 | XMS_ITS | Clinical Summary ---
Author Organization [facility] Address [address] [place] [address] Care Team Providers Care Quality Process Engineer Name Role Phone Unavailable Primary Care [...] 2010 Imm-Zoster, Recombinant (1 of 2) 2010 Alcohol and Drug Screen 08/24/2024 Depression Annual Screen 08/24/2024 Sra-GPDLL-64 (2024- season) 2025 021, 12/11/2020 Imm-Influenza (#1) 2025 Cervical Ablation/Cold-Knife Conization Discontinued Cervical Cryotherapy Discontinued Colposcopy Discontinued Endometrial Biopsy Discontinued Excision/Leep Discontinued HPV Genotyping Discontinued Vaginal Pap Discontinued Vulvoscopy Discontinued Insurance [place] MEDICAID
--- OUTSIDE RECORDS SUMMARY | 2025-05-03 15:16 | XMS_ITS | Clinical Summary ---
Author Organization [facility] Address [address] [place] [phone] Phone Care Team Providers Care Software Packaging Engineer Name Role Phone Frederick Huggins MD Primary Care Provider [phone] Allergies Active Allergy Reactions Criticality Noted Date Comments Penicillin G Rash 10/15/2024 Medications No known medications Active Problems No known active problems Immunizations Name Administration Dates Next Due Tdap Tetanus diptheria acell ular pertussis (Boostrix; Adacel) 7yo and older 10/15/2024 Medical History Medical History Date Comments Seizures (CMS/HCC V24, CMS/[facility] V28) Anxiety Social History Tobacco Use Types [...] 07/26/2022 Social Influencers of Health Screening 07/26/2022 Depression Screening 08/24/2024 COVID-19 Vaccine (3 - 2024-2 6 season) 2025 01/08/2021, 12/11/2020 Influenza Vaccine (#1) 2025 DTaP,Tdap,and Td Vaccines [...] to complete this topic Insurance [place] - [place] Advance Directives Documents on File Type Date Recorded 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
== END 2025-05-03 13:04 | disposition home or self-care (01) ==
LOC: HO.HMCHD 12:04
PROVIDERS: PCP Student in an Organized Health Care Education/Training Program; Visit Provider Student in an Organized Health Care Education/Training Program
DX: S01.01XA Laceration without foreign body of scalp, initial encounter (principal); S06.9X9A Unspecified intracranial injury with loss of consciousness of unspecified duration, initial encounter; E87.1 Hypo-osmolality and hyponatremia

== ENCOUNTER → 2025-05-03 12:04 | Outpatient (BNVA) | payer OTHER, SELFPAY | PROVIDERS: PCP Student in an Organized Health Care Education/Training Program; Visit Provider Student in an Organized Health Care Education/Training Program | DX: S01.01XD Laceration without foreign body of scalp, subsequent encounter (principal); S06.9X9S Unspecified intracranial injury with loss of consciousness of unspecified duration, sequela; E87.1 Hypo-osmolality and hyponatremia; Z79.899 Other long term (current) drug therapy | CPT/HCPCS: 99212 ==

== ENCOUNTER 2025-05-03 12:47 | Emergency (ER) | payer OTHER, SELFPAY ==
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
[2025-05-03 12:56] VITALS: BP 145/67; PULSE 79; RESP 16; TEMP 37.4; O2SAT 99; BMI 33.8
--- NOTE | 2025-05-03 13:01 | PC.NURSE ---
Pressure bandage applied and bleeding has stopped. Provider here to eval and treat.
[2025-05-03 13:54] VITALS: BP 145/67; PULSE 79; RESP 16; TEMP 37.4; O2SAT 99
== END 2025-05-03 13:56 | disposition home or self-care (01) ==
PROVIDERS: Emergency Provider Emergency Medicine Emergency Medical Services
DX: Z48.02 Encounter for removal of sutures (principal)
CPT/HCPCS: 99283

== ENCOUNTER 2025-05-05 14:23 | Outpatient (REF) | payer OTHER, SELFPAY ==
[2025-05-05 16:48] LABS: Osmolality, Serum 277 mosm/kg (281-305)
[2025-05-05 16:49] LABS: Anion Gap 11 (12-20); Blood Urea Nitrogen 13 mg/dL (9-16); Calcium 9.3 mg/dL (8.4-10.2); Carbon Dioxide 26 mmol/L (22-29); Chloride 99 mmol/L (96-108); Estimated Glomerular Filt Rate > 60; Potassium 4.4 mmol/L (3.3-5.1); Sodium 132 mmol/L (135-145)
[2025-05-20 16:14] LABS: Cortisol, Free 0.20 mcg/dL
== END 2025-05-05 14:24 | disposition home or self-care (01) ==
LOC: HO.LAB 14:23
PROVIDERS: PCP Internal Medicine; Visit Provider Nurse Practitioner Family
DX: E87.1 Hypo-osmolality and hyponatremia (principal); Z79.1 Long term (current) use of non-steroidal anti-inflammatories (NSAID); Z79.899 Other long term (current) drug therapy
CPT/HCPCS: 36415; 80048; 82530; 83930; 83935; 84300; 84443; 99202

== ENCOUNTER 2025-05-05 14:23 | Outpatient (AMB) | payer OTHER, SELFPAY ==
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
[2025-05-05 14:45] VITALS: BP 124/70; PULSE 86; O2SAT 98; BMI 32.2
--- OUTSIDE RECORDS SUMMARY | 2025-05-05 17:16 | XMS_ITS | Clinical Summary ---
Author Organization [facility] Address [address] [place] [id number] Phone Care Team Providers Care Salesperson Meats Name Role Phone Frederick Huggins MD Primary Care Provider [phone] Allergies Active Allergy Reactions Criticality Noted Date Comments Penicillin G Rash 10/15/2024 Medications No known medications Active Problems No known active problems Immunizations Name Administration Dates Next Due Tdap Tetanus diptheria acell ular pertussis (Boostrix; Adacel) 7yo and older 10/15/2024 Medical History Medical History Date Comments Seizures (CMS/HCC V24, CMS/[facility] V28) Anxiety Social History Tobacco Use Types [...] to complete this topic Insurance [place] - [place] Advance Directives Documents on File Type Date Recorded Patient Manager Global Communications Expl anation Health Care Decision (hx) 01/26/2020 AD KHALIF DIRECTIVE Care Teams Salesperson Meats Relationship Specialty Start Date End Date Frederick Huggins MD [address] [place] [address] Dr Allen [place] PCP - General Internal Medicine 10/15/24
--- OUTSIDE RECORDS SUMMARY | 2025-05-05 17:16 | XMS_ITS | Clinical Summary ---
Author Organization [facility] Address [address] [place] [address] Care Team Providers Care Career Manager Name Role Phone Unavailable Primary Care Provider [...] Drug Screen 08/24/2024 Depression Annual Screen 08/24/2024 [id number] (2024- season) 2025 021, 12/11/2020 Imm-Influenza (#1) 2025 Cervical Ablation/Cold-Knife Conization Discontinued Cervical Cryotherapy Discontinued Colposcopy Discontinued Endometrial Biopsy Discontinued Excision/Leep Discontinued HPV Genotyping Discontinued Vaginal Pap Discontinued Vulvoscopy Discontinued Insurance [place] MEDICAID
== END 2025-05-05 15:18 | disposition home or self-care (01) ==
PROVIDERS: PCP Internal Medicine; Visit Provider Nurse Practitioner Family
DX: E87.1 Hypo-osmolality and hyponatremia (principal)
CPT/HCPCS: 99204

== ENCOUNTER 2025-05-26 11:12 | Outpatient (AMB) | payer OTHER, SELFPAY ==
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
[2025-05-26 11:35] VITALS: BP 134/80
--- OUTSIDE RECORDS SUMMARY | 2025-05-26 12:26 | XMS_ITS | Clinical Summary ---
Author Organization [facility] Address [address] [place] [address] Care Team Providers Care Wash Mill Operator Name Role Phone Unavailable Primary Care Provider [...] Drug Screen 08/24/2024 Depression Annual Screen 08/24/2024 [id number] (2024- season) 2025 021, 12/11/2020 Imm-Influenza (#1) 2025 Cervical Ablation/Cold-Knife Conization Discontinued Cervical Cryotherapy Discontinued Colposcopy Discontinued Endometrial Biopsy Discontinued Excision/Leep Discontinued HPV Genotyping Discontinued Vaginal Pap Discontinued Vulvoscopy Discontinued Insurance [place] MEDICAID
--- OUTSIDE RECORDS SUMMARY | 2025-05-26 12:26 | XMS_ITS | Clinical Summary ---
Author Organization [facility] Address [address] [place] [address] Phone Care Team Providers Care Bulk Tank Driver Name Role Phone Frederick Huggins MD Primary Care Provider [phone] Allergies Active Allergy Reactions Criticality Noted Date Comments Penicillin G Rash 10/15/2024 Medications No known medications Active Problems No known active problems Immunizations Immunization Administration Dates Next Due Tdap Tetanus diptheria acell ular pertussis (Boostrix; Adacel) 7yo and older 10/15/2024 Medical History Medical History Date Comments Seizures (CMS/HCC V24, CMS/[facility] V28) Anxiety Social History Tobacco [...] Last Done Comments Breast Cancer Screening 1960 Colorectal Cancer Screening: Colonoscopy 1960 Cervical Cancer Screening: P ap Smear 1981 Pneumococcal Vaccine: 50+ Years (1 of 1 - PCV) 2010 Zoster Vaccines (1 of 2) 2010 HIV Screening 07/26/2022 Hepatitis C Screening 07/26/2022 [...] to complete this topic Insurance [place] - [place] Advance Directives Documents on File Type Date Recorded Patient Implementation Lead Expl anation Health Care Decision (hx) 01/26/2020 AD KHALIF DIRECTIVE Care Teams Bulk Tank Driver Relationship Specialty Start Date End Date Frederick Huggins MD [address] [place] [address] Dr Allen [place] PCP - General Internal Medicine 10/15/24
== END 2025-05-26 11:51 | disposition home or self-care (01) ==
LOC: HO.HKA 11:13
PROVIDERS: PCP Internal Medicine; Visit Provider Internal Medicine Nephrology
DX: E87.1 Hypo-osmolality and hyponatremia (principal)
CPT/HCPCS: 99214

== ENCOUNTER → 2025-05-26 11:12 | Outpatient (BNVA) | payer OTHER, SELFPAY | PROVIDERS: PCP Internal Medicine; Visit Provider Internal Medicine Nephrology | DX: E87.1 Hypo-osmolality and hyponatremia (principal) | CPT/HCPCS: 99212 ==

== ENCOUNTER 2025-06-20 11:50 | Outpatient (REF) | payer OTHER, SELFPAY ==
--- OUTSIDE RECORDS SUMMARY | 2025-06-20 15:15 | XMS_ITS | Clinical Summary ---
Author Organization [facility] Address [address] [place] [address] Phone Care Team Providers Care Research Laboratory Technician Name Role Phone Frederick Huggins MD Primary Care Provider [phone] Allergies Active Allergy Reactions Criticality Noted Date Comments Penicillin G Rash 10/15/2024 Medications No known medications Active Problems No known active problems Immunizations Immunization Administration Dates Next Due Tdap Tetanus diptheria acell ular pertussis (Boostrix; Adacel) 7yo and older 10/15/2024 Medical History Medical History Date Comments Seizures (CMS/HCC V24, CMS/[facility] V28) Anxiety Social History Tobacco [...] to complete this topic Insurance MEDICAID - [place] Advance Directives Documents on File Type Date Recorded Patient Fitness Services Manager Expl anation Health Care Decision (hx) 01/26/2020 AD KHALIF DIRECTIVE Care Teams Research Laboratory Technician Relationship Specialty Start Date End Date Frederick Huggins MD [address] [place] [address] Dr Allen [place] PCP - General Internal Medicine 10/15/24
--- OUTSIDE RECORDS SUMMARY | 2025-06-20 15:15 | XMS_ITS | Clinical Summary ---
Author Organization [facility] Address [address] [place] [address] Care Team Providers Care Aerospace Assembler Name Role Phone Unavailable Primary Care Provider [...] Screening 1960 Diabetes Screening 1960 HPV Screening (self-collect) 1960 HPV Screening 1960 Hepatitis C Screening [...] Drug Screen 08/24/2024 Depression Annual Screen 08/24/2024 [id number] (2024- season) 04/24/202501/08/ 021, 12/11/2020 Imm-Influenza (#1) 2025 Cervical Ablation/Cold-Knife Conization Discontinued Cervical Cryotherapy Discontinued Colposcopy Discontinued Excision/Leep Discontinued HPV Genotyping Discontinued Vaginal Pap Discontinued Vulvoscopy Discontinued Insurance [place] MEDICAID
[2025-06-22 16:09] LABS: Quantiferon TB Gold Plus 1 NEGATIVE (NEGATIVE); TB Test (QFT) Mitogen -Nil 9.73 IU/mL; TB Test (QFT) Nil 0.02 IU/mL; TB Test (QFT) Plus TB1 -Nil 0.01 IU/mL; TB Test (QFT) Plus TB2 -Nil 0.01 IU/mL
== END 2025-06-20 11:51 | disposition home or self-care (01) ==
LOC: HO.LAB 11:50
PROVIDERS: PCP Student in an Organized Health Care Education/Training Program; Visit Provider Student in an Organized Health Care Education/Training Program
DX: Z11.1 Encounter for screening for respiratory tuberculosis (principal)
CPT/HCPCS: 36415; 86480

== ENCOUNTER 2025-07-26 11:23 | Outpatient (AMB) | payer OTHER, SELFPAY ==
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
[2025-07-26 11:41] VITALS: BP 144/82; PULSE 79; RESP 18; TEMP 36.8; O2SAT 98; BMI 32.6
--- OUTSIDE RECORDS SUMMARY | 2025-07-26 13:44 | XMS_ITS | Clinical Summary ---
Author Organization [facility] Address [address] [place] [address] Phone Care Team Providers Care Options Advisor Name Role Phone Frederick Huggins MD Primary Care Provider [phone] Allergies Active Allergy Reactions Criticality Noted Date Comments Penicillin G Rash 10/15/2024 Medications No known medications Active Problems No known active problems Immunizations Immunization Administration Dates Next Due Tdap Tetanus diptheria acell ular pertussis (Boostrix; Adacel) 7yo and older 10/15/2024 Medical History Medical History Date Comments Seizures (CMS/HCC V24, CMS/[facility] V28) Anxiety Social History Tobacco Use [...] Influenza Vaccine (#1) 2025 DTaP,Tdap,and Td Vaccines (3 - Td or Tdap) 10/15/2034 10/15/2024, 12/01/2007 RSV Immunization Adult Patients (1 - 1-dose [...] to complete this topic Insurance MEDICAID - [place] Advance Directives Documents on File Type Date Recorded 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
== END 2025-07-26 12:00 | disposition home or self-care (01) ==
LOC: HO.HMCHD 11:23
PROVIDERS: PCP Physician Assistant Medical; Visit Provider Student in an Organized Health Care Education/Training Program
DX: M79.602 Pain in left arm (principal); S06.9X9S Unspecified intracranial injury with loss of consciousness of unspecified duration, sequela; E87.1 Hypo-osmolality and hyponatremia; R35.0 Frequency of micturition

== ENCOUNTER 2025-07-26 11:23 | Outpatient (REF) | payer OTHER, SELFPAY ==
--- NOTE | ~2025-07-26 | XR_ITS ---
EXAMINATION: XR HAND, LEFT CLINICAL INFORMATION: M79.602 - Pain in left arm COMPARISON: X-ray 03/03/2007 TECHNIQUE: PA, lateral, and oblique views of the left hand. FINDINGS: No acute fracture, dislocation or suspicious bony lesion is identified Mild radiocarpal arthritis. Mild arthritis of some of the interphalangeal joints of the fingers, more prominently involving the fourth DIP joint. No erosions. No abnormal soft tissue calcification. No radiopaque foreign body. XR/XR hand LT min 3V IMPRESSION: No radiographic evidence of acute osseous findings. Degenerative arthritis as above... Electronically signed by: Cisco Bazzi MD 07/27/2025 09:47 AM EST
--- NOTE | ~2025-07-26 | XR_ITS ---
EXAMINATION: XR ELBOW, LEFT CLINICAL INFORMATION: M79.602 - Pain in left arm COMPARISON: None available. TECHNIQUE: AP, lateral, and oblique views of the left elbow. FINDINGS: No visible acute fracture or dislocation or suspicious bony lesion. No significant joint space narrowing. No marginal osteophytes. Small enthesopathy at the medial and lateral humeral epicondyle. Olecranon enthesopathy. No osseous erosion. No significant joint effusion. No abnormal soft tissue calcification. XR/XR elbow LT min 3V IMPRESSION: Mild degenerative changes. No acute osseous findings Electronically signed by: Cisco Bazzi MD 07/27/2025 07:31 AM EST
--- NOTE | ~2025-07-26 | XR_ITS ---
EXAMINATION: XR SHOULDER, LEFT CLINICAL INFORMATION: M79.602 - Pain in left arm COMPARISON: None TECHNIQUE: AP external rotation, Grashey, scapular Y, and axillary views of the left shoulder. FINDINGS: Mild degenerative changes noted in the glenohumeral joint with marginal osteophytes that are small. AC joint is mildly degenerated. There is amorphous calcific density in the AC joint capsule, possibly pyrophosphate versus hydroxyapatite crystals. On the scapular view, there is amorphous calcific density situated just lateral to the lesser tuberosity. XR/XR shoulder LT min 2V IMPRESSION: There are mild degenerative changes involving glenohumeral joint. There is mild degenerative change involving the AC joint with crystal deposition in the AC joint capsule. Faint amorphous calcific density is visible near the lesser tuberosity on the axillary view could be related to hydroxyapatite deposition/calcific tendinitis. Electronically signed by: Marlon Mercado MD 07/26/2025 12:56 PM EST
[2025-07-26 13:55] LABS: Appearance Urine Clear; Glucose Urine UA Negative (Negative); PH 7.5 (5.0-9.0); Specific Gravity - Urine 1.010 (1.005-1.025); UMIC TRIGGER UACC YES
[2025-07-26 14:02] LABS: UACC Culture Trigger YES
== END 2025-07-26 11:24 | disposition home or self-care (01) ==
LOC: HO.XRAY 11:23
PROVIDERS: PCP Physician Assistant Medical; Visit Provider Student in an Organized Health Care Education/Training Program
DX: M79.602 Pain in left arm (principal); R35.0 Frequency of micturition; S06.9X9D Unspecified intracranial injury with loss of consciousness of unspecified duration, subsequent encounter; E87.1 Hypo-osmolality and hyponatremia
CPT/HCPCS: 73030; 73080; 73130; 81001; 81003; 87086; 99212

== ENCOUNTER → 2025-07-26 12:11 | Outpatient (BNV) | payer OTHER, SELFPAY | PROVIDERS: PCP Physician Assistant Medical; Visit Provider Radiology Diagnostic Radiology | DX: M19.012 Primary osteoarthritis, left shoulder (principal); M75.32 Calcific tendinitis of left shoulder | CPT/HCPCS: 73030 ==